=== PATIENT | female | born 1985 | race African-American/Black ===

== ENCOUNTER 2016-11-07 00:10 | Emergency (ER) | payer OTHER ==
[~2016-11-07] VITALS: Ht 157.5 cm; Wt 83.8 kg
[~2016-11-07 00:10] MED LIST: NOHOMEMEDS
[2016-11-07 01:01] LABS: MCH 27.5 PG (29.0-34.0); MCHC 31.7 G/DL (30.0-36.0); MEAN PLAT.VOLUME 11.4 uM^3 (9.5-12.4); PLATELET COUNT 242 K/uL (156-360); RBC DIS.WIDTH-CV 15.3 % (11.8-14.6); RBC DIS.WIDTH-SD 47.6 % (39-53); RED BLOOD COUNT 3.45 M/uL (3.80-5.20); WHITE BLOOD COUNT 5.2 K/uL (4.1-10.2)
[2016-11-07 01:11] LABS: CHLORIDE 107 mEq/L (99-109); POTASSIUM 3.8 mEq/L (3.7-5.4); SODIUM 137 mEq/L (136-147)
[2016-11-07 01:14] LABS: GLUCOSE 101 mg/dL (70-99)
[2016-11-07 01:15] LABS: ANION GAP 8 MEQ/L (2-14)
[2016-11-07 01:16] LABS: TOTAL BILIRUBIN 0.1 mg/dL (0.0-1.0)
[2016-11-07 01:17] LABS: ALKALINE PHOSPHATASE 54 IU/L (3-129); GFR ESTIMATE (CALCULATED) > 59 mL/min/
[2016-11-07 01:18] LABS: UREA NITROGEN (BUN) 12 mg/dL (9-23)
[2016-11-07 01:21] LABS: LIPASE 31 U/L (1.0-51.0)
[2016-11-07 01:24] LABS: TROP-I INTERPRETATION NEGATIVE; TROPONIN-I < 0.01 ng/mL (0.0-0.30)
[2016-11-07 01:27] LABS: QUANTITATIVE HCG < 4.0 MIU/ML
[2016-11-07 02:14] LABS: D-DIMER ELISA 0.74 mg/L FEU (< 0.57)
[2016-11-07 05:11] VITALS: BP 120/74
== END 2016-11-07 05:15 | disposition home or self-care (01) ==
LOC: EME 00:10
PROVIDERS: Emergency Medicine
DX: R07.9 Chest pain, unspecified (principal); R05 Cough
CPT/HCPCS: 71020; 71275; 80053; 83690; 84484; 84702; 85027; 85379; 93005; 99281; 99285

== ENCOUNTER 2016-12-05 09:58 | Emergency (ER) | payer OTHER ==
[~2016-12-05] VITALS: Ht 157.5 cm; Wt 83.5 kg
[2016-12-05] MEDS ORDERED: ERYTHROMYC1 APPLICAT BOTH EYES (11:19)
[2016-12-05] MEDS ORDERED: VIGAMOX 0.60 DROP/3 RIGHT EYE (11:19)
[2016-12-05] MEDS ORDERED: ERYTHROMYC1 APPLICAT RIGHT EYE (11:24)
[2016-12-05 11:33] VITALS: BP 145/72
== END 2016-12-05 11:39 | disposition home or self-care (01) ==
LOC: EME 09:58
DX: H16.001 Unspecified corneal ulcer, right eye (principal); Z97.3 Presence of spectacles and contact lenses
CPT/HCPCS: 99281; 99284

== ENCOUNTER 2017-12-22 08:38 | Emergency (ER) | payer OTHER ==
[~2017-12-22] VITALS: Ht 157.5 cm; Wt 93.8 kg
[~2017-12-22 08:38] MED LIST changes: +ERYTHROMYC1 APPLICAT BOTH EYES; +ERYTHROMYC1 APPLICAT RIGHT EYE; +VIGAMOX 0.60 DROP/3 RIGHT EYE
[2017-12-22 09:48] LABS: APPEARANCE SL.HAZY ((CLEAR)); BILIRUBIN NEGATIVE; BLOOD NEGATIVE; COLOR AMBER ((YELLOW)); GLUCOSE (STRIP) NEGATIVE; KETONES NEGATIVE; LEUKOCYTES LARGE; NITRITE NEGATIVE; PROTEIN (STRIP) 30; SPECIFIC GRAVITY 1.029 (1.000-1.030)
[2017-12-22 10:03] LABS: BACTERIA 1+ /HPF; EPITHELIAL CELLS 1+ /HPF; MUCUS 1+ /LPF; RED BLOOD CELLS 0-5 /HPF (0-5)
[2017-12-22 10:27] VITALS: BP 130/71
[2017-12-25 12:39] LABS: SOURCE SWAB
== END 2017-12-22 10:28 | disposition home or self-care (01) ==
LOC: EME 08:38
PROVIDERS: Nurse Practitioner Family
DX: Z20.2 Contact with and (suspected) exposure to infections with a predominantly sexual mode of transmission (principal); Z86.19 Personal history of other infectious and parasitic diseases
CPT/HCPCS: 81003; 81025; 87210; 87491; 87591; 99281; 99284; J0696

== ENCOUNTER 2018-02-24 04:55 | Emergency (ER) | payer OTHER ==
[~2018-02-24] VITALS: Ht 157.5 cm; Wt 93.2 kg
[2018-02-24 06:58] LABS: HEMATOCRIT 31.2 % (36.0-46.0); HEMOGLOBIN 10.2 G/DL (11.9-15.5); MCH 28.8 PG (29.0-34.0); MCHC 32.7 G/DL (30.0-36.0); MCV 88.1 FL (83-99); PLATELET COUNT 269 K/uL (156-360); RBC DIS.WIDTH-CV 14.4 % (11.8-14.6); RBC DIS.WIDTH-SD 46.1 % (39-53); RED BLOOD COUNT 3.54 M/uL (3.80-5.20); WHITE BLOOD COUNT 5.9 K/uL (4.1-10.2)
[2018-02-24 07:19] LABS: APPEARANCE SL.HAZY ((CLEAR)); BILIRUBIN NEGATIVE; BLOOD NEGATIVE; COLOR YELLOW ((YELLOW)); GLUCOSE (STRIP) NEGATIVE; KETONES NEGATIVE; LEUKOCYTES NEGATIVE; NITRITE NEGATIVE; PROTEIN (STRIP) NEGATIVE; SPECIFIC GRAVITY 1.018 (1.000-1.030); UROBILINOGEN 0.2 MG/DL (0.2-1.0)
[2018-02-24 07:24] LABS: BACTERIA RARE /HPF; EPITHELIAL CELLS 2+ /HPF; MUCUS TRACE /LPF; RED BLOOD CELLS 0-5 /HPF (0-5); UCUL ADDED? NO; WHITE BLOOD CELLS 0-5 /HPF (0-5)
[2018-02-24 07:25] LABS: ALBUMIN 3.8 G/DL (3.2-4.8); CHLORIDE 105 MEQ/L (99-109); POTASSIUM 3.5 MEQ/L (3.7-5.4); SODIUM 137 MEQ/L (136-147); TOTAL BILIRUBIN 0.4 MG/DL (0.0-1.0)
[2018-02-24 07:31] LABS: ALKALINE PHOSPHATASE 49 IU/L (3-129); ALT (GPT) 9 IU/L (3-49); AST (GOT) 16 IU/L (2-34); CREATININE 0.8 MG/DL (0.6-1.3); GFR ESTIMATE (CALCULATED) > 59 mL/min/; GLUCOSE 97 mg/dL (70-99); TOTAL PROTEIN 7.7 G/DL (6.4-8.3); UREA NITROGEN (BUN) 9 mg/dL (9-23)
[2018-02-24 07:35] LABS: QUANTITATIVE HCG 25.5 MIU/ML
[2018-02-24 09:32] VITALS: BP 135/76
== END 2018-02-24 09:15 | disposition home or self-care (01) ==
LOC: EME 04:55
PROVIDERS: Nurse Practitioner Family
DX: O20.9 Hemorrhage in early pregnancy, unspecified (principal); Z3A.01 Less than 8 weeks gestation of pregnancy
CPT/HCPCS: 80053; 81003; 84702; 85027; 99281; 99284

== ENCOUNTER 2018-05-11 16:17 | Emergency (ER) | payer OTHER ==
[~2018-05-11] VITALS: Ht 162.6 cm; Wt 96.1 kg
[2018-05-11 17:47] LABS: HEMATOCRIT 31.8 % (36.0-46.0); HEMOGLOBIN 10.5 G/DL (11.9-15.5); MCH 29.8 PG (29.0-34.0); MCV 90.3 FL (83-99); RBC DIS.WIDTH-CV 17.2 % (11.8-14.6); RBC DIS.WIDTH-SD 56.8 % (39-53); RED BLOOD COUNT 3.52 M/uL (3.80-5.20); WHITE BLOOD COUNT 8.3 K/uL (4.1-10.2)
[2018-05-11 17:54] LABS: ALBUMIN 3.8 g/dL (3.2-4.8)
[2018-05-11 17:55] LABS: CHLORIDE 104 mEq/L (99-109); POTASSIUM 4.1 mEq/L (3.7-5.4); SODIUM 136 mEq/L (136-147)
[2018-05-11 17:57] LABS: GLUCOSE 99 mg/dL (70-99)
[2018-05-11 17:58] LABS: APPEARANCE SL.HAZY ((CLEAR)); BILIRUBIN NEGATIVE; BLOOD MODERATE; COLOR YELLOW ((YELLOW)); GLUCOSE (STRIP) NEGATIVE; KETONES NEGATIVE; LEUKOCYTES LARGE; NITRITE NEGATIVE; PROTEIN (STRIP) 30; SPECIFIC GRAVITY 1.036 (1.000-1.030)
[2018-05-11 17:59] LABS: TOTAL BILIRUBIN 0.1 mg/dL (0.0-1.0)
[2018-05-11 18:00] LABS: ALKALINE PHOSPHATASE 40 IU/L (3-129)
[2018-05-11 18:01] LABS: CREATININE 0.7 mg/dL (0.6-1.3); GFR ESTIMATE (CALCULATED) > 59 mL/min/
[2018-05-11 18:02] LABS: UREA NITROGEN (BUN) 12 mg/dL (9-23)
[2018-05-11 18:03] LABS: AST (GOT) 17 IU/L (2-34)
[2018-05-11 18:04] LABS: ALT (GPT) 13 IU/L (3-49)
[2018-05-11 18:08] LABS: BACTERIA RARE /HPF; CALCIUM OXALATE CRYSTALS 1+ /HPF; EPITHELIAL CELLS 1+ /HPF; MUCUS 2+ /LPF; UCUL ADDED? NO; WHITE BLOOD CELLS 0-5 /HPF (0-5)
[2018-05-11 18:30] LABS: PLAT.SUFFICIENCY ADEQUATE; PLATELET COUNT 273 K/uL (156-360)
[2018-05-11 18:44] LABS: QUANTITATIVE HCG 92722.4 MIU/ML
[2018-05-11 19:48] VITALS: BP 119/61
== END 2018-05-11 19:48 | disposition home or self-care (01) ==
LOC: EME 16:17
PROVIDERS: Physician Assistant Medical
DX: O20.0 Threatened abortion (principal); R11.0 Nausea; Z3A.10 10 weeks gestation of pregnancy
CPT/HCPCS: 76801; 80053; 81003; 84702; 85027; 86900; 86901; 99281; 99284